=== PATIENT | male | born 1975 | race Caucasian/White ===

== ENCOUNTER 2024-01-21 11:49 | Day surgery (SDC) | payer OTHER, SELFPAY ==
[2024-01-20 12:06] VITALS: BMI 33.0
[2024-01-21 12:52] VITALS: BP 158/100; PULSE 69; RESP 16; TEMP 37.1; O2SAT 100; BMI 33.9
[2024-01-21] MEDS: LACTATED RINGERS 1,000 ML 21 ML IV (13:10)
--- NOTE | 2024-01-21 13:36 | PM.PREOP ---
Pre-operative Note Interval Note History & Physical reviewed/Exam performed by Physician: Yes Changes to H&P: No
[2024-01-21] MEDS: CEFAZOLIN 2 GM/100 ML PREMIX 100 ML IV (13:56)
[2024-01-21] MEDS: BUPIVACAINE 0.25% (PF) VIAL 30 ML INJ (14:16)
[2024-01-21 14:57] VITALS: BP 131/89; PULSE 65; RESP 16; TEMP 36.3; O2SAT 95
[2024-01-21 15:01] VITALS: BP 122/79; PULSE 57; RESP 12; TEMP 36.3; O2SAT 95
[2024-01-21 15:07] VITALS: BP 119/79; PULSE 56; RESP 12; TEMP 36.4; O2SAT 95
[2024-01-21 15:11] VITALS: BP 115/80; PULSE 56; RESP 12; TEMP 36.4; O2SAT 96
[2024-01-21] MEDS: OXYCODONE IR 5 MG TABLET PO (15:26)
--- NOTE | 2024-01-21 21:08 | PM.OP.1 ---
Operative Date/Time/Diagnoses Date of procedure: 01/21/24 Time of procedure: 21:08 Pre-op diagnosis: umbilical hernia Post-op diagnosis: same Procedure & Clinicians Procedure: Open umbilical hernia repair Same procedure as scheduled: Yes Indications: Symptomatic umbilical hernia repair Surgeon: Rd Otoole [employer] Nurse Manager: Abel Mcdowell Anesthesia Type: General Operative Notes Findings: 4 cm fascial defect containing omentum Specimen(s): none sent Procedure in detail: Patient was brought to the operating room placed supine on the table. Bilateral lower extremity compression devices were applied. General anesthesia was induced and they were intubated with an endotracheal tube. They received 2 g of Ancef prior to skin incision. They were prepped and draped in sterile fashion. A time-out was performed. A curvilinear incision was made inferior to the umbilicus. The subcutaneous tissues were divided. The umbilical hernia was identified and the hernia sac was dissected off the umbilical skin and circumferentially off of the fascia defect. The hernia sac was sharply opened and contained viable omentum. The omentum was reduced back into the abdomen. Using blunt dissection I carefully carefully freed the hernia sac from beneath the fascia defect in order to accomodate the mesh. The fascia defect was 4 cm in maximal diameter. A Bard Ventralex ST hernia patch 8 cm was inserted beneath the fascia defect and above the peritoneum in a sublay position. The mesh was anchored in multiple locations using Ethibond suture to the fascia and the fascial defect was closed over the mesh. The umbilical skin was tacked to the subcutaneous tissues and then the remainder of the subcutaneous tissues were reapproximated using 3 0 Vicry,l skin closed with 4 0 Monocryl followed by the application of Dermabond and Steri-Strips. Sponge instrument count at the end of the operation was correct. Patient tolerated procedure well was extubated and transferred to postoperative care unit in stable condition. Post-operative Condition: stable Disposition: same day surgery
== END 2024-01-21 15:51 | disposition home or self-care (01) ==
PROVIDERS: PCP Internal Medicine; Referring Provider Surgery; Visit Provider Surgery
PROC: (CPT 49593; principal; 2024-01-21 13:45)
DX: K42.9 Umbilical hernia without obstruction or gangrene (principal)
CPT/HCPCS: 49593; J0690; J1100; J2250; J2405; J2704; J3010